=== PATIENT | female | born 1945 | race African-American/Black ===

== ENCOUNTER 2018-01-08 21:18 | Emergency (ER) | payer OTHER ==
[~2018-01-08] VITALS: Ht 165.1 cm; Wt 58.5 kg
[2018-01-08 21:38] VITALS: BP 78/30
[2018-01-08] MEDS ORDERED: NOREPINEPHRINE BITARTRATE 4 MG/4 ML VIAL. IV ONE ×2 (21:43→21:45)
[2018-01-08] MEDS ORDERED: IV NORMAL SALINE 250ML 250 ML ONE (21:45)
[2018-01-08] MEDS ORDERED: NOREPINEPHRINE BITARTRATE 8 MG in IV NORMAL SALINE 250ML 250 ML IV PRN (22:00)
--- NOTE | 2018-01-08 23:38 | ED.ADGEN ---
Adult General Chief Complaint Chief Complaint Non-responsive HPI HPI Patient is a 72 year old female who presents with hx per rapid outsole stitcher, found non- responsive and not breathing at time of night meds. Pt. CPR started by her, until paramedics arrived. They continue CPR and Defib. Idea Worker were Unable to intubate. Pt. arrived with pacer and on 100% BMV ventilations. Pt. had thready pulse with pacing. BP interment. Pt. intubated to protect airway. Pt. air way was swollen and required repeat attempt with Video scope. Pt. again required CPR for lost of pulse. See code sheet for details. US- bedside showed no cardiac response with pacer. Code called at 2202. Pt. has hx of remote coronary art. bypass, and know peripheral vascular dz. Pt. hx. CADz, HTN, Hyperlipidemia, Lt. subclavian stenosis. Pt. did have hx of Vent. Tachycardia- txed with pacer and internal defib. unit. Pt. hx. of TIA and CVA, Pt. had severe carotid stenosis- and recently under went Lt. carotid endarterectomy at [facility] by Dr. Sue. Pt. admitted on 01/05 and discharged on 01/06. Pt. family requested bed visiting of body without ET tube or NG in place. Notify the director of operations for therapy for Dr. Sue vascular surgery -Dr. Ramey and Dr. Hoyt director of operations for therapy for Dr. Aguilar of the . Review of Systems Review of Systems Constitutional: Denies fever or chills [] Eyes: Denies change in visual acuity, redness, or eye pain [] HENT: Denies nasal congestion or sore throat [] Respiratory: Denies cough or shortness of breath [] Cardiovascular: No additional information not addressed in HPI [] GI: Denies abdominal pain, nausea, vomiting, bloody stools or diarrhea [] : Denies dysuria or hematuria [] Musculoskeletal: Denies back pain or joint pain [] Integument: Denies rash or skin lesions [] Neurologic: Denies headache, focal weakness or sensory changes [] Endocrine: Denies polyuria or polydipsia [] All other systems were reviewed and found to be within normal limits, except as documented in this note. Family History Family History Not currently available Current Medications Current Medications Current Medications Medications (Trade) Dose Ordered Sig/Vimal Start Time Stop Time Status Last Admin Dose Admin Norepinephrine Bitartrate (Levophed) 4 mg STK-MED ONCE 01/08/18 21:45 01/08/18 21:46 DC Norepinephrine Bitartrate 8 mg/ Sodium Chloride 258 ml @ 1.93 mls/hr CONT PRN 01/08/18 22:00 Sodium Chloride 250 ml @ As Directed STK-MED ONCE 01/08/18 21:45 01/08/18 21:46 DC See Nursing for home meds Allergies Allergies Allergies Coded Allergies Type Severity Reaction Last Updated Verified Unable to Assess 01/08/18 No Physical Exam Physical Exam Constitutional: in acute distress, morbid in appearance. [] HENT: Normocephalic, , bilateral external ears normal, oropharynx moist, no oral exudates, nose normal. [] Eyes: pupils dilated and fixed, conjunctiva injected, no discharge. [] Neck: Lt. endarterectomy scar.-Edema noted Cardiovascular: Paced. Vent. capture Lungs & Thorax: Bilateral breath sounds rhonchi and crackle with auscultation [] BMV. Abdomen: Distended Skin: cold and mottled Back: No injury appreciated Extremities: No response Neurologic: No neuro response Current Patient Data Vital Signs Vital Signs Date Time Temp Pulse Resp B/P (MAP) Pulse Ox O2 Delivery O2 Flow Rate FiO2 01/08/18 21:38 80 78/30 (46) Bag Valve Mask 15.0 01/08/18 21:18 16 74 EKG EKG [] Radiology/Procedures Radiology/Procedures [] Course & Med Decision Making Course & Med Decision Making Pertinent Labs and Imaging studies reviewed. (See chart for details). Pt. intubated with 7.0 ET tube with assistance of videoscope. CO2 change with increased saturations per monitor. OG is in place by auscultation. See code sheet for details. Critical Care- approximately-42 min code, charting and family discussion 1 hr 42 min total. [] Final Impression Final Impression 1. Cardiopulmonary Arrest[] 2. Hx of Recent left carotid endarterectomy surgery Dragon Disclaimer Dragon Disclaimer This electronic medical record was generated, in whole or in part, using a voice recognition dictation system. SHAUN EID MD Jan 08, 2018 23:38
== END 2018-01-09 16:00 | disposition expired ==
LOC: ER 21:18
DX: I46.9 Cardiac arrest, cause unspecified (principal); I25.10 Atherosclerotic heart disease of native coronary artery without angina pectoris; I10 Essential (primary) hypertension; E03.9 Hypothyroidism, unspecified
CPT/HCPCS: 31500; 43752; 92950; 99291-25